=== PATIENT | female | born 1955 | race Caucasian/White ===

== ENCOUNTER 2021-09-28 15:17 | Outpatient (CLI) | payer MEDICARE, OTHER ==
[~2021-09-28 15:17] MED LIST: Magnevist 469MG/ML 20 ML VIAL ONE
== END 2021-09-28 15:18 | disposition home or self-care (01) ==
LOC: CSHMRI 15:17
PROVIDERS: ATTEND Family Medicine
DX: R44.3 Hallucinations, unspecified (principal); G31.9 Degenerative disease of nervous system, unspecified; R90.82 White matter disease, unspecified; G93.89 Other specified disorders of brain
CPT/HCPCS: 70553; 82565

== ENCOUNTER 2024-04-03 12:58 | Outpatient (CLI) | payer MEDICARE, MEDICAID | END 2024-04-03 12:59 | disposition home or self-care (01) | LOC: CSHCT 12:58 | PROVIDERS: ATTEND Surgery | DX: G91.9 Hydrocephalus, unspecified (principal); Z98.2 Presence of cerebrospinal fluid drainage device | CPT/HCPCS: 70450 ==